=== PATIENT | male | born 1980 | race Caucasian/White ===

== ENCOUNTER 2017-02-28 17:55 | Emergency (ER) | payer SELFPAY ==
[~2017-02-28] VITALS: Ht 177.8 cm; Wt 90.9 kg
[~2017-02-28 17:55] MED LIST: IBUPROFEN
[2017-02-28 18:03] VITALS: Ht 177.8 cm; Wt 90.9 kg
--- NOTE | 2017-02-28 19:04 | RADRPT ---
PROCEDURE: Chest radiograph CLINICAL INDICATION: Altered level of consciousness. COMPARISON: None relevant listed. TECHNIQUE: Single frontal chest radiograph. FINDINGS: The lungs are clear. No pleural effusion or focal parenchymal opacity. The cardiomediastinal silhouette is normal. No suspicious bone lesion. IMPRESSION: No acute cardiopulmonary abnormality. RPTAT: [facility] Physician Anirudh Date Time Electronically viewed and signed by Day Snowden Physician on 02/28/2017 19:04 LG/
[2017-02-28 19:11] VITALS: BP 121/62; PULSE 98; RESP 20
--- NOTE | 2017-02-28 19:15 | ERD ---
ER Documentation Chief Complaint Date/Time DATE: 02/28/17 TIME: 19:15 Chief Complaint biba for heroin od brother did cpr for about 15 mins [employer] HPI Patient is a 36-year-old male with heroin abuse who presents with a heroin overdose. The patient was brought in by ambulance. The patient overdosed on heroin accidentally just prior to arrival. He was given CPR by his brother but medics gave 4 mg of Narcan and he started breathing again. He has no complaints at this time. He does not want to be in the emergency department. He says that his doctor is at [facility]. ROS All systems reviewed and are negative except as per history of present illness. Medications Home Meds Reported Medications [Ibuprofen] No Conflict Check 05/18/09 Allergies Allergies: Coded Allergies: No Known Allergies (Verified Allergy, Mild, 05/18/09) PMhx/Soc History of Surgery: Yes (LOBECTOMY DUE TO ABSCESS/LUNG) Hx Neurological Disorder: No Hx Respiratory Disorders: Yes (LUNG ABSCESS) Hx Cardiac Disorders: No Hx Miscellaneous Medical Probl: No Hx Alcohol Use: Yes Hx Substance Use: Yes Hx Tobacco Use: No Smoking Status: Never smoker FmHx Family History: diabetes Physical Exam Vitals Vital Signs Date Time Temp Pulse Resp B/P Pulse Ox O2 Delivery O2 Flow Rate FiO2 02/28/17 19:11 98 20 121/62 97 Room Air 02/28/17 18:03 98.1 89 20 118/62 97 Physical Exam Const: No acute distress Head: Atraumatic Eyes: Normal Conjunctiva ENT: Normal External Ears, Nose and Mouth. Neck: Full range of motion..~ No meningismus. Resp: Clear to auscultation bilaterally Cardio: Regular rate and rhythm, no murmurs Abd: Soft, non tender, non distended. Normal bowel sounds Skin: No petechiae or rashes Back: No midline or flank tenderness Ext: No cyanosis, or edema Neur: Awake and alert Procedures/MDM EKG read by me: Rate/Rhythm: Regular rate and rhythm at a normal rate Intervals: Normal Impression: No evidence of ischemia or arrhythmia Chest x-ray negative per radiology. Patient is a 36-year-old male who presents with acute heroin overdose. He was watched the emergency department for over 1 hour and did not have any further signs of respiratory depression. He does not want to stay in the emergency department any longer wants to leave. He can return for any worsening symptoms. He was instructed not to use heroin in the future. Departure Diagnosis: Primary Impression: Heroin overdose Encounter type: initial encounter Injury intent: accidental or unintentional Qualified Code: T40.1X1A - Accidental overdose of heroin, initial encounter Condition: Fair Patient Instructions: Overdose, Accidental (Adult) Referrals: [facility] YOU HAVE RECEIVED A MEDICAL SCREENING EXAM AND THE RESULTS INDICATE THAT YOU DO NOT HAVE A CONDITION THAT REQUIRES URGENT TREATMENT IN THE EMERGENCY DEPARTMENT. FURTHER EVALUATION AND TREATMENT OF YOUR CONDITION CAN WAIT UNTIL YOU ARE SEEN IN YOUR DOCTORS OFFICE WITHIN THE NEXT 1-2 DAYS. IT IS YOUR RESPONSIBILITY TO MAKE AN APPOINTMENT FOR FOLOW-UP CARE. IF YOU HAVE A PRIMARY DOCTOR --you should call your primary doctor and schedule an appointment IF YOU DO NOT HAVE A PRIMARY DOCTOR YOU CAN CALL OUR PHYSICIAN REFERRAL HOTLINE AT IF YOU CAN NOT AFFORD TO SEE A PHYSICIAN YOU CAN CHOSE FROM THE FOLLOWING [facility] [address] [facility] [facility] [address] [facility] [facility] [address] [facility] [facility] [address] [facility] [facility] [address] [facility] [facility]. [address] Additional Instructions: Call your primary care doctor TOMORROW for an appointment during the next 1-2 days.See the doctor sooner or return here if your condition worsens before your appointment time. FRANCHESKA KO MD Feb 28, 2017 19:15
== END 2017-02-28 19:25 | disposition home or self-care (01) ==
LOC: E/R 17:55
DX: T40.1X1A Poisoning by heroin, accidental (unintentional), initial encounter (principal); R07.9 Chest pain, unspecified
CPT/HCPCS: 71010; 93005